=== PATIENT | female | born 1960 | race Hispanic/Latino ===

== ENCOUNTER 2020-02-19 14:55 | Emergency (ER) | payer SELFPAY ==
--- NOTE | 2020-02-19 15:52 | RAD ---
XR Knee Lt 4 View STANDARD HISTORY: Left knee pain FINDINGS: No fracture or dislocation is identified. No joint effusion is seen. Degenerative changes are present .. .
== END 2020-02-19 16:16 | disposition home or self-care (01) ==
LOC: ERS 14:55
DX: M25.562 Pain in left knee (principal); E11.9 Type 2 diabetes mellitus without complications; I10 Essential (primary) hypertension; F32.9 Major depressive disorder, single episode, unspecified; Z79.84 Long term (current) use of oral hypoglycemic drugs; W18.40XA Slipping, tripping and stumbling without falling, unspecified, initial encounter; Y99.0 Civilian activity done for income or pay

== ENCOUNTER 2020-09-05 14:13 | Outpatient (CLI) | payer OTHER | END 2020-09-05 14:14 | disposition home or self-care (01) | LOC: BICRAD 14:13 | PROVIDERS: ATTEND Family Medicine | DX: R07.81 Pleurodynia (principal) ==